=== PATIENT | female | born 1995 | race African-American/Black ===

== ENCOUNTER → 2016-07-03 | Day surgery (SDC) | payer MEDICAID, OTHER ==
[~2016-07-03] MED LIST: Acetaminophen, Intravenous 1,000 MG/100 ML IVBOT IV ONE; BUPIVACAINE 0.25%-EPINEPHRINE 1:200,000 30 ML ONE; FENTANYL 100 MCG/2 ML VIAL IV PRN; FENTANYL 100 MCG/2 ML VIAL ONE; FENTANYL 250 MCG/5 ML VIAL IV ONE; GLYCOPYRROLATE 1 MG VIAL IM ONE; HYDROmorphone 1 MG INJECTION IV ONE; HYDROmorphone 1 MG INJECTION IV PRN; ISOVUE-300 (61%) 50 ML ONE; LABETALOL 20 MG/4 ML SYRINGE IV PRN; LIDOCAINE 100 MG PFS IV ONE; MEPERIDINE 25 MG/ML TUBEX IV PRN; MIDAZOLAM 2 MG/2 ML VIAL IV ONE; MORPHINE 4 MG/ML INJECTION IV ONE; NEOSTIGMINE 1 MG/1 ML (1:1000) INJ 10 ML MDV IM ONE; NS 1,000 ML IV ONE; ONDANSETRON HCL 4 MG ODT TAB PO PRN; ONDANSETRON HCL 4 MG/2 ML VIAL IV ONE; ONDANSETRON HCL 4 MG/2 ML VIAL IV PRN; ONDANSETRON HCL 4 MG/2 ML VIAL ONE; OXYCODONE HCL 5 MG TABLET ONE; PIPERACILLIN AND TAZOBACTAM 3.375 GM in D5W 100 ML IV ONE; PROMETHAZINE 25 MG/ML VIAL ONE; PROPOFOL 200 MG/20 ML VIAL IV ONE; ROCURONIUM 50 MG/5 ML VIAL IV ONE; SUCCINYLCHOLINE 20 MG/1 ML INJ 10 ML MDV IV ONE; hydrALAZINE 20 MG/ML VIAL IV PRN
--- NOTE | 2016-07-03 06:19 | EDPRACDOC ---
- History of Present Illness Blood Type: O+ <Fernie Florez - Last Filed: 07/03/16 06:20> <Graciela Nava Kathy - Last Filed: 07/03/16 08:29> - General Information Stated Complaint: ABD PAIN Time Seen by Provider: 07/03/16 06:14 Home Medications: Home Medications No Home Medications 07/03/16 Allergies/Adverse Reactions: Allergies Allergy/AdvReac Type Severity Reaction Status Date / Time No Known Allergies Allergy Verified 07/03/16 06:20 - History of Present Illness HPI: STRONG SHARP UPPER ABD PAIN, APPROX 40 MIN DURATION. NAUSEA. NO VOMITING. VAGINAL DELIVERY 2 MONTHS AGO. NO DYSURIA. NO DIARRHEA. PAIN 10/10, SHARP, STABBING. NO RADIATION. (Fernie Florez) ED Past Medical History - History Reviewed Yes Nurses notes reviewed and agree except as marked - Patient Medical History Psychological History: Denies: Depression (YRS AGO, NO TX NOW) - Family Medical History Reports: Hypertension (MOM, DAD, SISTER, GRANDPARENTS), Diabetes (MOM, DAD, SISTER), Cancer (UNCLE LUNG CA). Denies: Stroke, Cardiac Disorders - Social Medical History Smoking Status: Never smoker <Fernie Florez - Last Filed: 07/03/16 06:20> EDM Review of Systems - Review of Systems ROS Negative Except as Marked: Yes All systems reviewed and were negative except as marked Constitutional: No Symptoms Reported. negative: Fever Respiratory: No Symptoms Reported, Other (PAIN IN UPPER ABD WITH INSPIRATION) Cardiovascular: No Symptoms Reported Gastrointestinal: Nausea, Pain Genitourinary: No Symptoms Reported Neurological: No Symptoms Reported Musculoskeletal: No Symptoms Reported Integumentary: No Symptoms Reported <Fernie Florez - Last Filed: 07/03/16 06:20> - Physical Exam Constitutional: Alert (Awake), No apparent distress Oriented to: Time, Person, Place - HEENT Head: Normal ( normocephalic) Eye Exam: Normal (PERRL, EOMI, Sclera white) Oropharynx: Normal (Pharynx:Moist without exudate,Gums-no swelling) Nose: No Symptoms Reported (septum midline) Neck: Normal (FROM, trachea at midline) - Respiratory/Cardiovascular Respiratory: Normal - CTA (BBS clear to auscultation without adventitious sounds ) Cardiovascular: Normal (RRR without murmur, gallop or rub) - GI Auscultation: Normal (NABS) Tenderness: Moderate, RUQ, Epigastric Walter's Sign: Positive - Musculoskeletal Back: Normal (Non-Tender) Extremities: Normal (Normal tone, Pulses 2+ No cyanosis or edema, FROM) - Integumentary Skin: Normal, Warm, Dry Lymphatics: Normal (no adenopathy) - Neurologic Memory Impaired: Normal Motor Function: Normal (Normal tone, Pulses 2+ No cyanosis or edema, FROM) Cranial Nerve: Normal (CN II-X11 intact sensation, strength 5/5) Cerebellar: Normal Mood Description: Normal Perception: Normal <Fernie Florez - Last Filed: 07/03/16 06:20> <Fernie Florez - Last Filed: 07/03/16 06:20> - Re-evaluation Re-evaluation 2 Re-evaluation Time: 08:00 (I ASSUMED CARE FROM DR. FLOREZ WITH RIGHT UPPER QUADRANT ULTRASOUND PENDING, WITH PATIENT IN STABLE CONDITION.) Re-evaluation 3 Re-evaluation Time: 08:20 (INCREASING RIGHT UPPER QUADRANT PAIN AFTER ULTRASOUND. SHE HAS HAD PERSISTENT RIGHT UPPER QUADRANT PAIN NOW FOR APPROXIMATELY 3 HOURS. IT HAS NOT RESOLVED. FAMILY REQUEST PATRICA / CRISSY) - Results 07/03/16 06:28 07/03/16 06:28 <Graciela Nava - Last Filed: 07/03/16 08:29> - Re-evaluation Re-evaluation 3 ALERT, ORIENTED VERY UNCOMFORTABLE. SOMEWHAT RESTLESS. LUNGS CLEAR AUSCULTATION ANTERIOR-POSTERIOR GOOD AIR MOVEMENT ABDOMEN: SOFT VERY TENDER PALPATION RIGHT UPPER QUADRANT POSITIVES WALTER SIGN. NO OTHER REBOUND GUARDING. SKIN IS NORMAL. (Graciela Nava) - Results WBC 9.5 xk/uL (3.8-10.8) 07/03/16 06:28 RBC 4.33 xM/uL (4.20-5.40) 07/03/16 06:28 Hgb 10.3 g/dL (12.0-16.0) L 07/03/16 06:28 Hct 32.5 % (36-47) L 07/03/16 06:28 MCV 75 fL (81-99) L 07/03/16 06:28 MCH 23.8 pg (27-32) L 01/17/17 06:28 MCHC 31.8 g/dl (33-36) L 07/03/16 06:28 RDW 16.9 % (11.5-14.5) H 07/03/16 06:28 Plt Count 287 xk/uL (130-400) 07/03/16 06:28 MPV 9.6 fL (7.4-10.4) 07/03/16 06:28 Neut % (Auto) Cancelled 07/03/16 06:28 Lymph % (Auto) Cancelled 07/03/16 06:28 [place] % (Auto) Cancelled 07/03/16 06:28 Eos % (Auto) Cancelled 07/03/16 06:28 Baso % (Auto) Cancelled 07/03/16 06:28 Absolute Neuts (auto) Cancelled 07/03/16 06:28 Absolute Lymphs (auto) Cancelled 07/03/16 06:28 Seg Neuts % (Manual) 60 % (45-76) 07/03/16 06:28 Band Neutrophils % 1 % (0-5) 07/03/16 06:28 Lymphocytes % (Manual) 35 % (17-44) 07/03/16 06:28 Monocytes % (Manual) 4 % (0-10) 07/03/16 06:28 Absolute Neutrophils 5.80 xk/uL (1.7-8.2) 07/03/16 06:28 Absolute Lymphocytes 3.33 xk/uL (0.65-4.75) 07/03/16 06:28 Platelet Estimate Norm (NORMAL) 07/03/16 06:28 RBC Morphology 1+ hypo 1+ micro 1+ aniso 07/03/16 06:28 RBC Morphology 1+ hypo 1+ micro 1+ aniso 07/03/16 06:28 RBC Morphology 1+ hypo 1+ micro 1+ aniso 07/03/16 06:28 Sodium 136 mEq/L (137-146) L 07/03/16 06:28 Potassium 3.6 mEq/L (3.5-5.1) 07/03/16 06:28 Chloride 102 mEq/L (98-107) 07/03/16 06:28 Carbon Dioxide 24 mMOL/L (22-33) 07/03/16 06:28 Anion Gap 14 mEq/L (8-16) 07/03/16 06:28 BUN 10 MG/DL (7-17) 07/03/16 06:28 Creatinine 0.60 MG/DL (0.52-1.04) 07/03/16 06:28 Estimated GFR (MDRD) > 60 mL/min (>=60) 07/03/16 06:28 Glucose 142 MG/DL (70-99) H 07/03/16 06:28 Calculated Osmolality 263 MOs/Kg (270-290) L 07/03/16 06:28 Calcium 8.9 MG/DL (8.4-10.2) 07/03/16 06:28 Total Bilirubin 1.0 MG/DL (0.2-1.3) 07/03/16 06:28 AST 81 IU/L (14-36) H 07/03/16 06:28 ALT 44 IU/L (9-52) 07/03/16 06:28 Alkaline Phosphatase 108 IU/L (38-126) 07/03/16 06:28 Total Protein 7.7 G/DL (6.3-8.2) 07/03/16 06:28 Albumin 4.2 G/DL (3.5-5.0) 07/03/16 06:28 Lipase 84 U/L (23-300) 07/03/16 06:28 Urine Color Yellow 07/03/16 06:20 Urine Clarity Clear 07/03/16 06:20 Urine pH 6.0 (5.0-8.0) 07/03/16 06:20 Ur Specific [place] 1.030 07/03/16 06:20 Urine Protein Trace (NEG/TRACE) 07/03/16 06:20 Urine Glucose (UA) Neg (NEGATIVE) 07/03/16 06:20 Urine Ketones Neg (NEGATIVE) 07/03/16 06:20 Urine Occult Blood Neg (NEG/TRACE) 07/03/16 06:20 Urine Nitrite Neg (NEGATIVE) 07/03/16 06:20 Urine Bilirubin Neg (NEGATIVE) 07/03/16 06:20 Urine Urobilinogen 0.2 MG/DL (0-1) 07/03/16 06:20 Ur Leukocyte Esterase Neg (NEGATIVE) 07/03/16 06:20 Urine RBC 0-2 (0-5) 07/03/16 06:20 Urine WBC 0-2 (0-5) 07/03/16 06:20 Ur Epithelial Cells 2+ 07/03/16 06:20 Urine Bacteria Few (NEG/FEW) 07/03/16 06:20 Urine Mucus Sm amt (NEG/OCC) 07/03/16 06:20 Urine Test Neg (NEGATIVE) 07/03/16 06:20 Lab Results 07/03/16 07/03/16 07/03/16 06:28 06:28 06:28 WBC 9.5 RBC 4.33 Hgb 10.3 L Hct 32.5 L MCV 75 L MCH 23.8 L MCHC 31.8 L RDW 16.9 H Plt Count 287 MPV 9.6 Neut % (Auto) Cancelled Lymph % (Auto) Cancelled [place] % (Auto) Cancelled Eos % (Auto) Cancelled Baso % (Auto) Cancelled Absolute Neuts (auto) Cancelled Absolute Lymphs (auto) Cancelled Seg Neuts % (Manual) 60 Band Neutrophils % 1 Lymphocytes % (Manual) 35 Monocytes % (Manual) 4 Absolute Neutrophils 5.80 Absolute Lymphocytes 3.33 Platelet Estimate Norm RBC Morphology 1+ aniso Sodium 136 L Potassium 3.6 Chloride 102 Carbon Dioxide 24 Anion Gap 14 BUN 10 Creatinine 0.60 Estimated GFR (MDRD) > 60 Glucose 142 H Calculated Osmolality 263 L Calcium 8.9 Total Bilirubin 1.0 AST 81 H ALT 44 Alkaline Phosphatase 108 Total Protein 7.7 Albumin 4.2 Lipase 84 Urine Color Urine Clarity Urine pH Ur Specific [place] Urine Protein Urine Glucose (UA) Urine Ketones Urine Occult Blood Urine Nitrite Urine Bilirubin Urine Urobilinogen Ur Leukocyte Esterase Urine RBC Urine WBC Ur Epithelial Cells Urine Bacteria Urine Mucus Urine Test 07/03/16 07/03/16 06:20 06:20 WBC RBC Hgb Hct MCV MCH MCHC RDW Plt Count MPV Neut % (Auto) Lymph % (Auto) [place] % (Auto) Eos % (Auto) Baso % (Auto) Absolute Neuts (auto) Absolute Lymphs (auto) Seg Neuts % (Manual) Band Neutrophils % Lymphocytes % (Manual) Monocytes % (Manual) Absolute Neutrophils Absolute Lymphocytes Platelet Estimate RBC Morphology Sodium Potassium Chloride Carbon Dioxide Anion Gap BUN Creatinine Estimated GFR (MDRD) Glucose Calculated Osmolality Calcium Total Bilirubin AST ALT Alkaline Phosphatase Total Protein Albumin Lipase Urine Color Yellow Urine Clarity Clear Urine pH 6.0 Ur Specific [place] 1.030 Urine Protein Trace Urine Glucose (UA) Neg Urine Ketones Neg Urine Occult Blood Neg Urine Nitrite Neg Urine Bilirubin Neg Urine Urobilinogen 0.2 Ur Leukocyte Esterase Neg Urine RBC 0-2 Urine WBC 0-2 Ur Epithelial Cells 2+ Urine Bacteria Few Urine Mucus Sm amt Urine Test Neg (Graciela Nava) <Fernie Florez - Last Filed: 07/03/16 06:20> - Departure Disposition: Admit IP To This Hospital Education/Counseling Given To: Patient, Family Member Education/Counseling Given Regarding: Diagnosis, Treatment, Prognosis Decision to Admit Time: 08:27 Decision to admit date: 07/03/16 Decision to admit: from ED - Physician Consulted Surgery Time Called: 08:27 Provider Called: Sgeundo Henderson Time Coordinator [employer] Returned Call: 08:27 <Graciela Nava - Last Filed: 07/03/16 08:29> - Departure Condition: Stable Final Diagnosis: Acute cholecystitis Instructions: Biliary Colic (ED)
[2016-07-03 06:20] VITALS: BMI 43.6
[2016-07-03 06:46] LABS: MPV 9.6 fL (7.4-10.4)
[2016-07-03 06:49] LABS: LEUKOCYTES/URINE NEG (NEGATIVE); NITRITE/URINE NEG (NEGATIVE); URINE OCCULT BLOOD NEG (NEG/TRACE)
[2016-07-03 06:50] LABS: RBC/URINE 0-2 (0-5); WBC/URINE 0-2 (0-5)
[2016-07-03 06:53] LABS: BLOOD UREA NITROGEN 10 MG/DL (7-17); CALCIUM 8.9 MG/DL (8.4-10.2); CALCULATED OSMOLALITY 263 MOs/Kg (270-290); CHLORIDE 102 mEq/L (98-107); GLUCOSE 142 MG/DL (70-99); SODIUM LEVEL 136 mEq/L (137-146); TOTAL PROTEIN 7.7 G/DL (6.3-8.2)
[2016-07-03 07:37] LABS: SEG NEUTROPHIL 60 % (45-76)
--- NOTE | 2016-07-03 08:08 | DIRPT ---
CLINICAL DATA: Right upper quadrant abdominal pain. EXAM: US ABDOMEN LIMITED - RIGHT UPPER QUADRANT COMPARISON: None. FINDINGS: Gallbladder: Multiple gallstones are noted with the largest measuring 2.4 cm. No gallbladder wall thickening or pericholecystic fluid is noted. No sonographic Walter's sign is noted. Common bile duct: Diameter: 2.2 mm which is within normal limits. Liver: No focal lesion identified. Within normal limits in parenchymal echogenicity. IMPRESSION: Cholelithiasis without evidence of cholecystitis. No other abnormality seen in the right upper quadrant of the abdomen. Electronically Signed By: Evaristo Hernandez Jr, M.D. On: 07/03/2016 08:05
--- NOTE | 2016-07-03 08:42 | PCM.SURGCO ---
Consultation Date: 07/03/16 Requesting Physician: Graciela Nava Pharmacy Teacher: Segundo Henderson Consult Reason: Other (Cholecystitis.) - History of Present Illness Patient with RUQ abdominal pain that came on this am. No other episodes of this in the past. No fever or chills. No jaundice. Had u/s that showed GS and had positive Walter's sign. We were asked to evaluate and treat. Patient otherwise healthy. No prior abdominal operations. Chief Complaint: Abdominal pain. - Past Medical and Surgical History Cardiac History: Reports: No Significant History. Denies: Coronary Artery Disease, Atrial Fibrillation Respiratory History: Reports: No Significant History. Denies: Asthma, COPD GI/ History: Reports: No Significant History. Denies: Renal Disease, Gastroesophageal Reflux Systemic History: Reports: No Significant History. Denies: Cancer, Diabetes Musculoskeletal History: Reports: No Significant History. Denies: Arthritis, Gout Psychological History: Reports: No Significant History. Denies: Depression, Anxiety Neurological History: Reports: No Significant History. Denies: Cerebrovascular Accident, Seizures Past Surgical History: Reports: No Significant History Allergies No Known Allergies Allergy (Verified 07/03/16 06:20) Home Medications No Home Medications 07/03/16 - Social History Lives: With Family Smoking Status: Never smoker Social History: Denies: Substance Use Disorder - Family History Reports: Hypertension (MOM, DAD, SISTER, GRANDPARENTS), Diabetes (MOM, DAD, SISTER), Cancer (UNCLE LUNG [place]). Denies: Stroke, Cardiac Disorders - Review of Systems Constitutional: No Symptoms Reported. negative: Chills, Fever Eyes: No Symptoms Reported. negative: Blurred Vision, Double Vision Ears: No Symptoms Reported. negative: Hearing Loss, Pain Nose: No Symptoms Reported. negative: Abrasion, Bleeding Mouth: No Symptoms Reported. negative: Pain, Dry Mouth Throat/Neck: No Symptoms Reported. negative: Pain, Hoarseness Respiratory: No Symptoms Reported. negative: Cough, Wheezing Cardiovascular: No Symptoms Reported. negative: Chest Pain, Palpitations Gastrointestinal: Abdominal Pain. negative: Vomiting, Constipation Genitourinary: No Symptoms Reported. negative: Bleeding, Dysuria Neurological: No Symptoms Reported. negative: Dizziness, Seizure Musculoskeletal:: No Symptoms Reported. negative: Osteoarthritis, Muscle Pain, Joint Swelling Integumentary: No Symptoms Reported. negative: Bruising, Rash Allergic/Immunologic: No Symptoms Reported. negative: Hives, Itching Hematologic: No Symptoms Reported. negative: Lymphadenopathy, Anemia Endocrine: No Symptoms Reported. negative: Weight Gain, Weight Loss Psychiatric: No Symptoms Reported. negative: Anxiety, Depression - Physical Exam Vital Signs: Initial Vitals Temperature 97.8 F 07/03/16 06:17 Pulse Rate 81 07/03/16 06:17 Respiratory Rate 18 07/03/16 06:17 Blood Pressure 149/67 07/03/16 06:17 Pulse Oxygen Saturation 100 07/03/16 06:17 Constitutional: No apparent distress, Alert Oriented to: Time, Person, Place - HEENT Head: Normal. negative: Laceration, Tender Eye: Normal. negative: Edema, Scleral Icterus Oropharynx: Normal. negative: Membranes Dry, Red ENT EAC: Normal. negative: Blood TMJ: Normal. negative: Crepitance, Tender Nose: No Symptoms Reported. negative: Abrasion, Bleeding Respiratory: Normal - CTA. negative: Diminished, Rhonchi Cardiovascular: Normal. negative: Bradycardia, Tachycardia, Irregular, Diastolic murmur, Systolic murmur - GI Auscultation: Normal. negative: Bruit Palpation: Normal. negative: Enlarged liver, Enlarged spleen Tenderness: Moderate, RUQ Walter's Sign: Positive Rectal Exam: Deferred - Exam Deferred: Yes - Musculoskeletal Back: Normal. negative: Abrasion, Ecchymosis, CVA Tenderness Extremities: Normal. negative: Calf Tenderness, Clubbing, Cyanosis, Edema Spine: non-tender, full range of motion, normal alignment - Integumentary Skin: Normal. negative: Clammy, Diaphoretic Lymphatics: Normal. negative: Adenopathy, Tender - Neurologic Memory Impaired: Normal Motor Function: Normal Cranial Nerve: Normal Cerebellar: Normal Mood Description: Normal Thought: Coherent Perception: Normal - Lab Results 07/03/16 06:28 07/03/16 06:28 - Assessment/Plan (1) Acute cholecystitis K81.0 - ACUTE CHOLECYSTITIS Acute Comment: Needs lap warren with IOC possible open. Explained in detail. Will arrange. (2) Abdominal pain R10.9 - UNSPECIFIED ABDOMINAL PAIN Acute Comment: Treat underlying disorder.
--- NOTE | 2016-07-03 10:39 | HIM.ANES ---
Anesthesia Evaluation & Plan Surgeon:: Segundo Henderson - Focused Review of Systems Now: No (2 moths post vag delivery) Cardiac History: No: Hx Cardiac Disorders Gastrointestinal: No: Hx Gastrointestinal Disorders Neurological/Musculoskeletal: No: Hx Neurological Disorders Psychological: No Hx Depression HX Other Psyco/Soc Problems: depression Smoking Status: Never smoker Hx Stress Test (date): No Hx Echocardiogram (date): No Hx Chest Xray (date): No - Focused Physical Exam NPO since: after Midnight Mallampati: Class II Neck: Full Range of Motion Dental: Normal - no significant findings Cardiovascular/Chest: Normal (RRR no mumurs or rubs.) Respiratory: Lungs clear. negative: Rhonchi, Wheezing Any problems with anesthesia, including nausea and vomiting?: No Any relatives with a history of Malignant Hyperthermia?: No Beta Gonzalo given (if appropriate): No Other: Problem List Problem Status Onset Acute cholecystitis Acute 38 weeks gestation of Acute Active labor at term Acute False labor after 37 completed weeks of gestation Acute care following vaginal delivery Acute Single live Acute Vaginal delivery Acute PT/PTT/INR/ Urine Test Neg (NEGATIVE) 07/03/16 06:20 CBC/BMP/Other 07/03/16 06:28 07/03/16 06:28 Allergies Allergy/AdvReac Type Severity Reaction Status Date / Time No Known Allergies Allergy Verified 07/03/16 06:20 Home Medications Medication Instructions Recorded Last Taken Type Ferrous Sulfate [Feosol] 325 mg PO DAILY 07/03/16 07/02/16 History Height and Weight Patient's height 4 ft 11 in Patient's weight 97.976 kg Weight (Calculated Kilograms) 97.976 BMI 43.6 Vital Signs Temperature 97.6 F 07/03/16 09:47 Pulse Rate 67 07/03/16 09:47 Respiratory Rate 16 07/03/16 09:47 Blood Pressure 124/63 07/03/16 09:47 Pulse Oxygen Saturation 100 07/03/16 09:47 - Anesthetic Plan Anesthesia Type: General ASA Class: 1 -: I have examined this patient and reviewed the medical record. The patient has been assessed prior to anesthesia. Risks and benefits of anesthesia and anesthetic technique options have been discussed and all questions answered. The patient accepts the risk and desires me to proceed with the planned anesthetic.
--- NOTE | 2016-07-03 13:03 | HIMOPRPT ---
DATE OF PROCEDURE: 07/03/16 PREOPERATIVE DIAGNOSIS: Cholecystitis and cholelithiasis. POSTOPERATIVE DIAGNOSIS: Cholecystitis and cholelithiasis. PROCEDURE: Laparoscopic cholecystectomy with intraoperative cholangiogram. SURGEON: Segundo Henderson MD MACHINE TRY OUT SETTER: Mary Fuentes. ANESTHESIA: General Anesthesia. ESTIMATED BLOOD LOSS: Minimal COMPLICATIONS: None noted. ANTIBIOTICS: Preoperative antibiotics given. INDICATIONS: VALERIE SPENCER is a 21 year-old F patient with symptomatic cholelithiasis. We had explained the risks and benefits including the risk of infection, bleeding, anesthesia, as well as bowel, bile duct injury and the unforeseen complications. The patient had understood, had agreed, and was brought for the above-mentioned procedure. PROCEDURE IN DETAIL: The patient was brought to the operating room and placed on the operating room table in supine position. After identification of the patient's site, was given adequate amount of general anesthesia, then prepped and draped in sterile manner. When given okay by Anesthesia, after appropriate time-out, an Optiview trocar was placed on umbilicus in usual manner without any difficulties. Abdomen was insufflated to 15 mmHg pressure with CO2 gas, and the head was placed up and the right side placed up. Two subcostal and one subxiphoid trocars were inserted under direct vision in usual manner without any problems. Gallbladder was grasped, pulled lateral and cephalad. We dissected the gallbladder with blunt dissection, dissecting out the cystic duct and cystic artery. A Aguero clamp was placed. Cholangiogram was obtained. This was felt to be normal. Cholangiocatheter was removed. Cystic duct was multiply clipped and divided. Cystic artery was multiply clipped and divided. Then, gallbladder was placed under tension, dissected free with hook cautery dissection. It was placed in an Endopouch and removed without any difficulty. The abdomen was then re-insufflated and was irrigated with copious amounts of saline and suctioned dry. Hemostasis assured. Liver bed was inspected, was hemostatic. Clips were in good position. At that point, we went ahead and deflated the abdomen, assured hemostasis with at the trocar sites. All wounds were irrigated and brought together with monocryl. Dermabond was applied and allowed to dry. The patient was awoken and taken to recovery room in excellent condition with correct sponge counts and needle counts.
--- NOTE | 2016-07-03 13:58 | SC.ANESPOS ---
Post-Anesthesia Note LOC: Fully Awake Post-Anesthesia Assessment: Awake, Returned to Baseline, Hemodynamically Stable , Pain Control Adequate Phase I & II Recovery Complete: Yes Apparent Anesthesia Complication: No : N - Vital Signs Blood Pressure: 135/73 Pulse: 101 Resp Rate: 12 O2 Sat: 98 Temp: 97.0 F
[2016-07-03] MEDS: FENTANYL 100 MCG/2 ML VIAL IV PRN ×2 (14:26→14:37)
[2016-07-03 15:06] VITALS: TEMP 97.4
--- NOTE | 2016-07-03 15:08 | DIRPT ---
CLINICAL DATA: 21-year-old female with cholecystitis EXAM: INTRAOPERATIVE CHOLANGIOGRAM TECHNIQUE: Cholangiographic images from the C-arm fluoroscopic device were submitted for interpretation post-operatively. Please see the procedural report for the amount of contrast and the fluoroscopy time utilized. COMPARISON: Abdominal ultrasound 07/03/2016 FINDINGS: Intraoperative spot images obtained during intraoperative cholangiogram at the time of laparoscopic cholecystectomy demonstrate cannulation of the gallbladder neck and opacification of the biliary tree. There is no evidence of biliary ductal dilatation, stenosis, stricture or choledocholithiasis. Contrast material passes freely through the ampulla and into the duodenum. IMPRESSION: Negative intraoperative cholangiogram. Electronically Signed By: Eliel Reinoso M.D. On: 07/03/2016 15:05
[2016-07-03 16:25] VITALS: BP 143/79; PULSE 78
== END ==
LOC: ED 06:10 → SDC 09:21
PROVIDERS: ATTEND Surgery
PROC: 0FT44ZZ Resection of Gallbladder, Percutaneous Endoscopic Approach (ICD-10-PCS; principal; 2016-07-03 12:00)
DX: K80.10 Calculus of gallbladder with chronic cholecystitis without obstruction (principal)
CPT/HCPCS: 36415; 47563; 74300; 76705; 80053; 81001; 81025; 83690; 85007; 85027; 96361; 96365; 96375; 99284; J0131; J0330; J1170; J2001; J2250; J2270; J2405; J2543; J2550; J2710; J3010; J3490; J7060